=== PATIENT | male | born 1990 ===

== ENCOUNTER 2024-06-18 09:52 | Emergency (ER) | payer OTHER ==
[~2024-06-18] VITALS: Ht 172.7 cm; Wt 109.8 kg
[2024-06-18] MEDS ORDERED: HYDROcodone 7.5-APAP 325 TAB PO ONE (10:35)
[2024-06-18] MEDS ORDERED: Ondansetron 4 MG SoluTab SL ONE (10:35)
[2024-06-18] MEDS ORDERED: Ketorolac Tromethamine 30mg Vial IM ONE (10:35)
[2024-06-18 11:10] LABS: Source, Urine Clean Catch
[2024-06-18 11:13] LABS: Appearance, Urine Clear (Clear); Bilirubin, Urine Neg (Neg); Blood, Urine Neg (Neg); Color, Urine Yellow (P-Yellow); Glucose Qualitative, Urine Neg (Neg); Ketones, Urine Neg (Neg); Leukocyte Esterase, Urine Neg (Neg); Nitrite, Urine Neg (Neg); Protein, Urine Neg (Neg); Urobilinogen, Urine NORM (Normal)
[2024-06-18] MEDS ORDERED: OXYACE7.5T PO (12:08)
[2024-06-18] MEDS ORDERED: DOXY100 PO (12:08)
== END 2024-06-18 13:23 | disposition home or self-care (01) ==
LOC: ER 09:52
PROVIDERS: Emergency Medicine
DX: N50.3 Cyst of epididymis (principal); N43.3 Hydrocele, unspecified
CPT/HCPCS: 76870; 81003; 96372; 99284-25; A9270; J1885

== ENCOUNTER 2024-11-09 17:01 | Emergency (ER) | payer OTHER ==
[~2024-11-09] VITALS: Ht 172.7 cm; Wt 104.3 kg
[~2024-11-09 17:01] MED LIST: DOXY100 PO; OXYACE7.5T PO
[2024-11-09 18:39] LABS: BASOPHILS ABSOLUTE AUTO 0.07 K/mm3 (0.00-0.23); BASOPHILS PERCENT AUTO 1 % (0-2); EOSINOPHILS ABSOLUTE AUTO 0.32 K/mm3 (0.00-0.68); EOSINOPHILS PERCENT AUTO 3 % (0-6); Hematocrit 41.7 % (37.0-53.0); IMMATURE GRAN ABSOLUTE AUTO 0.03 K/mm3 (0.00-0.10); IMMATURE GRAN PERCENT AUTO 0 % (0-1); LYMPHOCYTES ABSOLUTE AUTO 2.03 K/mm3 (0.84-5.20); LYMPHOCYTES PERCENT AUTO 19 % (21-46); MONOCYTES ABSOLUTE AUTO 0.91 K/mm3 (0.16-1.47); MONOCYTES PERCENT AUTO 8 % (4-13); Mean Corpuscular HGB 32.6 pg (26.0-34.0); Mean Corpuscular Volume 91 fL (80-100); Mean Platelet Volume 10.6 fL (9.1-12.4); NEUTROPHILS ABSOLUTE AUTO 7.55 K/mm3 (1.96-9.15); NEUTROPHILS PERCENT AUTO 69 % (41-73); Platelet Count 266 K/mm3 (150-400); RDW Coefficient Variation 12.7 % (11.7-14.2); RDW Standard Deviation 41.6 fL (35.1-46.3); White Blood Cell Count 10.91 K/mm3 (4.00-11.30)
[2024-11-09 18:58] LABS: Albumin/Globulin Ratio 1.1 (0.8-1.8); Bilirubin, Total 0.3 mg/dL (0.1-1.0); Bun/Creatinine Ratio 12.8 (12.0-20.0); Creatinine, Blood 0.86 mg/dL (0.60-1.20); Globulin, Blood 3.8 g/dL (2.2-4.0); Potassium, Blood 3.8 mmol/L (3.5-5.5); Total Protein, Blood 7.8 g/dL (6.4-8.2)
[2024-11-09] MEDS ORDERED: HYDROcodone 5-APAP 325 TAB PO ONE (20:55)
[2024-11-09] MEDS ORDERED: Ibuprofen 400 MG Tab PO ONE (20:55)
[2024-11-09 22:06] LABS: Source, Urine Clean Catch
[2024-11-09 22:08] LABS: Bilirubin, Urine Neg (Neg); Blood, Urine Neg (Neg); Glucose Qualitative, Urine Neg (Neg); Ketones, Urine Neg (Neg); Leukocyte Esterase, Urine Neg (Neg); Nitrite, Urine Neg (Neg); Protein, Urine Neg (Neg); Urobilinogen, Urine NORM (Normal)
[2024-11-09] MEDS ORDERED: CefTRIAXone 1000 MG Vial IM ONE (22:15)
[2024-11-09 22:16] LABS: Appearance, Urine Hazy (Clear); Color, Urine Pale Yellow (P-Yellow)
[2024-11-09 22:17] LABS: Amorphous Heavy (0-Heavy); Bacteria Few /hpf; Red Blood Cells, Urine 0-2 /hpf (0-2); Squamous Epithelial Cells Few /hpf (Few); White Blood Cells, Urine 0-2 /hpf (0-5)
[2024-11-09] MEDS ORDERED: DOXY100 PO (22:17)
[2024-11-09] MEDS ORDERED: HYDROCODONE-AC1 EA10 PO (22:17)
[2024-11-09] MEDS ORDERED: IBUP800 PO (22:17)
[2024-11-10 01:06] LABS: Chlamydia Trachomatis Urine NOT DETECTED (NOT DETECT); Neisseria Gonorrhoea Urine NOT DETECTED (NOT DETECT)
== END 2024-11-09 22:42 | disposition home or self-care (01) ==
LOC: ER 17:01
PROVIDERS: Physician Assistant
DX: N45.2 Orchitis (principal)
CPT/HCPCS: 76870; 80053; 81001; 85025; 87491; 87591; 96372; 99284-25; A9270; J0696

== ENCOUNTER 2024-12-28 06:14 | Day surgery (SDC) | payer BC, OTHER ==
[2024-12-28] VITALS (8 sets, daily range): BP systolic 126–148; BP diastolic 63–96
[~2024-12-28] VITALS: Ht 172.7 cm; Wt 108.0 kg
[~2024-12-28 06:14] MED LIST changes: +HYDROCODONE-AC1 EA10 PO; +IBUP800 PO; +NAPR500 PO; +TIZA4 PO
[2024-12-28] MEDS ORDERED: Lactated Ringer's 1,000 ML IV SCH (06:20)
[2024-12-28] MEDS ORDERED: CeFAZolin Sodium 2,000 MG in NS 100 ML IV SCH (07:05)
[2024-12-28] MEDS ORDERED: CeFAZolin Sodium 2,000 MG VIAL ONE (07:10)
[2024-12-28] MEDS ORDERED: HYDROmorphone HCl/Pf 1MG SYR ONE (07:11)
[2024-12-28] MEDS ORDERED: propofoL 20 ML IV ONE ×2 (07:11→07:31)
[2024-12-28] MEDS ORDERED: Ondansetron HCl 2 MG / ML 2ML Vial ONE (07:11)
[2024-12-28] MEDS ORDERED: FentaNYL Citrate 50 MCG/ML 2 ML Injection ONE (07:11)
[2024-12-28] MEDS ORDERED: Ketorolac Tromethamine 30mg Vial ONE (07:11)
[2024-12-28] MEDS ORDERED: Dexamethasone Sod Phos 10 MG/ML 1ML VIAL ONE (07:11)
[2024-12-28] MEDS ORDERED: Lidocaine HCl 2% 20 ML MDV ONE (07:15)
[2024-12-28] MEDS ORDERED: Lidocaine HCl 1% 30 ML SDV ONE (07:16)
[2024-12-28] MEDS ORDERED: Bupivacaine 0.5% W/EPI 1:200000 SDV 30 ML Vial ONE (07:16)
[2024-12-28] MEDS ORDERED: Bupivacaine 0.5% HCl 5 MG/ML 30MLVIAL ONE (07:16)
--- NOTE | 2024-12-28 07:16 | NUR ---
PATIENT GAVE HIS JEWELRY TO HIS FOR SAFE KEEPING.
[2024-12-28] MEDS ORDERED: Lidocaine 2%-Epineph 1:200000 20 ML SDV ONE (08:05)
[2024-12-28] MEDS ORDERED: Ondansetron HCl 2 MG / ML 2ML Vial IV PRN (08:15)
[2024-12-28] MEDS ORDERED: Droperidol 5 mg/2 ml Vial IV PRN (08:15)
[2024-12-28] MEDS ORDERED: FentaNYL Citrate 50 MCG/ML 2 ML Injection IV PRN ×2 (08:15→08:20)
[2024-12-28] MEDS ORDERED: HYDROmorphone HCl/Pf 1MG SYR IV PRN ×2 (08:15)
[2024-12-28] MEDS ORDERED: HYDROcodone 5-APAP 325 TAB PO PRN (08:40)
--- NOTE | 2024-12-28 08:55 | NUR ---
REPORT RECEIVED FROM GUADALUPE HA. VSS. PT ON RA. PT [id number]&[id number]. PT ABLE TO REPOSITION SELF IN BED. PT REQUESTING PO FLUIDS AND TOLERATING THEM WELL. PT HAS 3 SURGICAL SITES TO HIS LOWER BACK COVERED WITH EXOFEN THAT ARE CDI. PT DENIES PAIN, NAUSEA OR OTHER DISCOMFORTS.
--- NOTE | 2024-12-28 09:13 | NUR ---
Patient up to Ambulate independently. Gait steady. VSS AND CONSISTENT WITH PT BASELINE. PT HAS NO COMPLAINTS AND VERBALIZES READINESS TO GO HOME. Discharge instructions reviewed with patient. Patient verbalizes understanding. Copy given to patient to take home. Dressing to procedure site clean, dry, intact with no visible drainage, swelling, erythema or bruising noted. Patient States Post-Procedure ride home has been arranged. Discharged via wheelchair to private car for ride home. PT BELONGINGS RETURNED TO PT.
== END 2024-12-28 09:16 | disposition home or self-care (01) ==
LOC: ORSCMMR 06:14 → ORD 07:30 → ORSCMMR 07:30
PROVIDERS: Surgery
PROC: 0JB70ZZ Excision of Back Subcutaneous Tissue and Fascia, Open Approach (ICD-10-PCS; principal; 2024-12-28 07:30)
DX: D17.1 Benign lipomatous neoplasm of skin and subcutaneous tissue of trunk (principal); Z79.899 Other long term (current) drug therapy
CPT/HCPCS: 88304; J0690; J1100; J1171; J1885; J2405; J2704; J3010; J7120